=== PATIENT | female | born 1980 | race Caucasian/White ===

== ENCOUNTER 2018-03-21 06:57 | Emergency (ER) | payer BC, SELFPAY ==
[2018-03-21 06:59] VITALS: BP 125/66; PULSE 100; RESP 22; TEMP 36.4; O2SAT 99; BMI 27.6
--- NOTE | 2018-03-21 07:15 | EKG12_ITS ---
Test Reason : CP Blood Pressure : / mmHG Vent. Rate : 092 BPM Atrial Rate : 092 BPM P-R Int : 156 ms QRS Dur : 072 ms QT Int : 362 ms P-R-T Axes : 063 014 039 degrees QTc Int : 447 ms Normal sinus rhythm Normal ECG Confirmed by PAUAL CARRILLO ([id number]), video news editor HARRY BRYANT ([id number]) on 04/03/2018 5:56:52 PM Referred By: ARUN/DAVID Confirmed By:PAULA CARRILLO
--- NOTE | 2018-03-21 07:19 | RAD_ITS ---
STUDY: X-RAY CHEST REASON FOR EXAM: Female, 37 years old. Intermittent chest pain for 4 days. TECHNIQUE: AP portable chest. COMPARISON: None. FINDINGS: The lungs are clear and expanded. There is no demonstrated pleural abnormality. Normal size heart. Normal mediastinum and stacey. Normal visualized pulmonary arteries. Normal visualized aortic arch and descending thoracic aorta. Normal visualized thoracic spine. Normal visualized ribs, clavicles, and shoulders. There is no demonstrated abnormality of the visualized soft tissue structures of the upper abdomen. RAD/Chest 1 View (Portable) IMPRESSION: Normal x-ray examination of the chest. Electronically Signed: Edwin Mark MD at 7:45 EDT , Service support ,
[2018-03-21 07:27] LABS: Absolute Lymphocyte Count 2.39 X10^3/ul (0.83-4.51); Absolute Neutrophil Count 8.1 X10^3/uL (2.0-7.7); Basophil# 0.02 X10^3/uL; Basophil% 0.2 % (0-1); Eosinophil# 0.04 X10^3/uL; Eosinophils% 0.4 % (0-5); Hemoglobin 13.9 g/dl (12.0-15.0); Lymphocyte # 2.39 X10^3/ul (4.0); Mean Corp Hgb Conc 33.1 g/gl (32-36); Mean Corpuscular Hgb 28.4 pg (27.0-32.0); Mean Corpuscular Volume 85.9 fL (81-99); Mean Platelet Vol. 11.3 fl (6.2-12.0); Monocyte# 0.31 X10^3/uL; Monocyte% 2.8 % (0-10); Neutrophil % 74.4 % (47-70); Platelet Count 199 K/mm3 (150-450); RBC Distribution Width CV 12.8 % (11.6-14.6); RBC Distribution Width SD 40.3 fl (35.1-43.9); Red Blood Count 4.89 M/mm3 (4.2-5.4); White Blood Count 10.9 K/mm3 (4.4-11.0)
[2018-03-21 07:31] LABS: POSITIVE COUNT NO; POSITIVE DIFFERENTIAL NO; POSITIVE MORPHOLOGY NO
[2018-03-21 07:37] LABS: Anion Gap 8 (5-15); BUN 9 mg/dL (7-18); BUN/Creat Ratio 11.6 RATIO (10-20); Calcium,Total 9.7 mg/dL (8.5-10.1); Chloride 105 mmol/L (98-107); Creatinine, Serum 0.78 mg/dL (0.55-1.02); EST Glomerular Filtration Rate 88 mL/min (>60); Est Glom Filt Rate - Afr Amer 106 mL/min (>60); Glucose 119 mg/dL (74-106); Sodium Level 139 mmol/L (136-145)
[2018-03-21 07:45] LABS: D-Dimer Quantitative (DVT/PE) < 0.27 FEU/ug/m (0.27-0.49)
[2018-03-21] MEDS: Aspirin 81 MG TAB.CHEW 324 MG PO (07:48)
[2018-03-21] MEDS: 0.9% Normal Saline 1,000 ML 150 ML IV (07:48)
[2018-03-21 08:12] VITALS: BP 106/72; PULSE 74; RESP 15
--- NOTE | 2018-03-21 08:23 | ED.VISSUMM ---
- ER Visit Summary Date of Service: 03/21/18 Chief Complaint: Chest pain History of Present Illness: The patient is a 37 F with a 3 day history of intermittent chest pain. She describes the pain as a squeezing and releasing almost like contractions behind the sternum. Pain does seem to be worse at night when she lays down it has been somewhat improved with Rolaids. She denies shortness of breath, cough, or congestion. She has no personal history of cardiac problems. Her father had an AR at the age of 60. She has no personal PE risk factors. Her brother did have a blood clot after a surgery years ago. Physical Examination: Vital signs are unremarkable. Patient sitting upright in bed. She is in no acute distress but is anxious. Head neck examination is normal. Heart is regular rate and rhythm. Lung sounds are clear. Abdomen is soft nontender. Lower extremity examination reveals no calf tenderness or edema. She has strong distal pulses throughout. Test Results: EKG is sinus at 92 with no sign of acute ischemia. Chest x-ray is unremarkable. CBC and chemistry studies are normal. Troponin is less than 0.015. D-dimer is negative. Emergency Department Course and Treatment: Patient was given aspirin along with IV Pepcid. On repeat evaluation she does feel improved. I believe her symptoms are most consistent with reflux. She will be started on Prilosec. Treatment Plan: [] Disposition: Discharge Impression: Chest pain secondary to reflux disease This note was generated with [employer] dictation software. It may contain incorrect words, spelling, and punctuation that were not noted in review of the chart prior to signing ED Disposition - Plan for ED Patient: Chief Complaint: Chest Pain Referrals: Nilson Jacome MD [Primary Care Provider] -
--- NOTE | 2018-03-21 08:25 | ED.DEP ---
ED Disposition - Plan for ED Patient: Disposition: Home or Assisted Living Chief Complaint: Chest Pain Instructions: ED GERD Prescriptions: Omeprazole [Prilosec] 20 mg PO DAILY #30 capsule Referrals: Nilson Jacome MD [Primary Care Provider] - 1-2 Weeks
[2018-03-21 08:32] VITALS: BP 112/69; PULSE 71; RESP 12
[2018-03-21 14:04] LABS: Pregnancy, Serum, hCG Quali. NEGATIVE Negative (0-9 Nonpreg)
== END 2018-03-21 08:44 | disposition home or self-care (01) ==
PROVIDERS: Emergency Provider Emergency Medicine; Family Provider Family Medicine; PCP Family Medicine
DX: K21.9 Gastro-esophageal reflux disease without esophagitis (principal); Z82.49 Family history of ischemic heart disease and other diseases of the circulatory system
CPT/HCPCS: 71045; 80048; 84484; 84703; 85025; 85379; 93005; 96365; 99284; A4216; J3490

== ENCOUNTER → 2019-08-27 12:49 | Outpatient (CLI) | payer BC, SELFPAY | PROVIDERS: Family Provider Family Medicine; PCP Family Medicine; Referring Provider Nurse Practitioner Family; Visit Provider Nurse Practitioner Family | DX: R42 Dizziness and giddiness (principal) | CPT/HCPCS: 93225; 93226 ==